=== PATIENT | female | born 1985 | race Caucasian/White ===

== ENCOUNTER 2024-09-26 11:57 | Emergency (ER) | payer BC, SELFPAY ==
--- NOTE | 2024-09-26 12:19 | ERPHSYRPT ---
- History of Present Illness Time Seen by Provider: 09/26/24 12:19 Source: patient, family Exam Limitations: no limitations Physician History: This is a right handed 38-year-old white female patient who was brought to the emergency department via private vehicle accompanied by her spouse and is a patient of Dr. Marquez, with a complaint of left hand injury. Patient was moving a heavy dresser down a few steps using a rex when the dresser fell up against her left hand. She arrives with pain and swelling to the left thumb and palmar aspect of the left hand at the thenar eminence. Patient has a history of anxiety, migraine headaches and is a daily smoker of tobacco cigarettes. Occurred: just prior to arrival Method of Injury: direct blow Quality: aching, throbbing Severity of Pain-Max: mild Severity of Pain-Current: mild Extremities Pain Location: hand: left Modifying Factors: Improves With: movement Associated Symptoms: none Allergies/Adverse Reactions: latex Allergy (Verified 09/26/24 12:16) Home Medications: Doxepin HCl 25 mg PO DAILY 11/10/22 [History] Travel Risk - International Travel Have you traveled outside of the country in past 3 weeks: No - Emerging Infectious Disease Are you exhibiting symptoms associated with any current EIDs: No - Review of Systems Constitutional: No Symptoms Eyes: No Symptoms Ears, Nose, & Throat: No Symptoms Respiratory: No Symptoms Cardiac: No Symptoms Abdominal/Gastrointestinal: No Symptoms Genitourinary Symptoms: No Symptoms Musculoskeletal: Injury (Left hand) Skin: No Symptoms Neurological: No Symptoms Psychological: No Symptoms Endocrine: No Symptoms Hematologic/Lymphatic: No Symptoms Immunological/Allergic: No Symptoms All Other Systems: Reviewed and Negative - Past Medical History Neurological History: Migraines Cardiac History: No Pertinent History Respiratory History: No Pertinent History Endocrine Medical History: No Pertinent History Musculoskeletal History: Fractures Other Medical History: CERVICAL FRACTURE AT AGE 12 WITH SPINAL SHOCK. - Past Surgical History Past Surgical History: No (unable to obtain) - Social History Smoking Status: Current every day smoker Exposure to second hand smoke: No Drug Use: none Patient Lives Alone: No - Nursing Vital Signs Nursing Vital Signs: Initial Vital Signs Temperature 97.7 F 09/26/24 12:20 Pulse Rate 70 09/26/24 12:20 Respiratory Rate 18 09/26/24 12:20 Blood Pressure 148/89 09/26/24 12:20 O2 Sat by Pulse Oximetry 99 09/26/24 12:20 Pain Scale Pain Intensity 4 - Physical Exam General Appearance: no apparent distress, alert, anxiety Eyes, Ears, Nose, Throat Exam: normal ENT inspection, moist mucous membranes Neck Exam: normal inspection, non-tender, supple, full range of motion Cardiovascular/Respiratory Exam: chest non-tender, no respiratory distress Abdominal Exam: non-tender Back Exam: normal inspection Shoulder Exam: normal inspection, non-tender, no evidence of injury, normal ROM Elbow/Forearm Exam: normal inspection, non-tender, no evidence of injury, normal ROM Wrist Exam: normal inspection, non-tender, no evidence of injury, normal ROM Hand Exam: bone tenderness (Left thumb), ecchymosis (Left thumb and thenar eminence left hand), soft tissue tenderness (Left thumb thenar eminence left hand), swelling (Left thumb and left thenar eminence), No deformity Neuro/Tendon Exam: normal sensation, normal motor functions, normal tendon functions, no evidence tendon injury Mental Status Exam: alert, oriented x 3, cooperative Skin Exam: ecchymosis (Left thumb and left thenar eminence) SpO2 Interpretation: normal O2 Delivery: Room Air - Course Nursing assessment & vital signs reviewed: Yes Ordered Tests: Active Orders 24 hr Category Date Time Status HAND (MINIMUM 3 VIEWS) Stat Exams 09/26/24 12:33 Taken Medication Summary Discontinued Medications Generic Name Dose Route Start Last Admin Trade Name Miya PRN Reason Stop Dose Admin Oxycodone/Acetaminophen 1 tab 09/26/24 12:32 09/26/24 12:40 Oxycodone Hcl/Apap 5 Mg/325 Mg Tablet PO 09/26/24 12:33 1 tab STAT STA Administration Oxycodone/Acetaminophen Confirm 09/26/24 12:38 Oxycodone Hcl/Apap 5 Mg/325 Mg Tablet Administered 09/26/24 12:39 Dose 1 tab .ROUTE .STK-MED ONE - Progress Progress: improved, pain not gone completely, re-examined Progress Note: 09/26/24 13:03 My medical decision making and the assignment of low complexity to this patient's medical issue today is based on review of the patient's past medical history, review the patient's medication list, review of the patient's drug allergy list, history present illness and physical findings on examination. The workup in this patient includes x-ray of the patient's left hand. Differential diagnosis includes but is not limited to left hand contusion, fracture left thumb, dislocation left thumb 09/26/24 13:13 I interpreted the preliminary report of the patient's left hand x-ray. The patient and spouse are aware that this is only a preliminary report. I do not see an acute fracture or dislocation. However, since the patient does have significant bruising and swelling of the thumb and thenar eminence of the left hand, we will put her in a thumb spica and have her follow-up in the orthopedic clinic here at [facility]. Counseled pt/family regarding: diagnosis, need for follow-up, rad results Medical Desision Making - Independent Historian Additional History obtained from: Spouse - Diagnostic Testing Diagnostic test were ordered, analyzed, and reviewed by me: Yes Radiological Interpretation: Interpreted by me, Teleradiologist Report - Risk of complications The pt has a mod risk of morbidity or mortality based on: Need for prescription drug management - Departure Departure Disposition: Home Clinical Impression: Contusion of left hand Condition: Stable Critical Care Time: No Referrals: ZACHARIAH MARQUEZ [Primary Care Provider, UNKNOWN] - Follow up/PCP as directed DOUG KELLEY NP [NON-STAFF PHY W/O PRIVILEGES, UNKNOWN] - Follow up/PCP as directed Additional Instructions: Ice pack to tender area 3-4 times a day for the next 3 days. Follow-up at the [facility] orthopedic clinic on 09/28/2024 at 8 AM for reevaluation. Take your Aleve as you normally do and the Percocet pain medicine as prescribed. Prescriptions: Oxycodone HCl/Acetaminophen [Percocet 5-325 mg Tablet] 1 each PO Q8H PRN PRN #6 tablet MDD 3 PRN Reason: Moderate To Severe Pain
[2024-09-26] MEDS ORDERED: PERCOCET TABLET 5/325MG ONE (12:38)
[2024-09-26] MEDS: PERCOCET TABLET 5/325MG PO STA (12:40)
[2024-09-26 12:45] VITALS: RESP 18; TEMP 97.7
[2024-09-26 13:26] VITALS: BP 140/80; PULSE 75; O2SAT 98
--- NOTE | 2024-09-26 20:39 | XRAY ---
Indication: Blunt trauma. Comparison: None 3 view left hand obtained. No bony, articular, or soft tissue abnormalities.
== END 2024-09-26 13:36 | disposition home or self-care (01) ==
LOC: ED 11:57
DX: S60.222A Contusion of left hand, initial encounter (principal); W23.0XXA Caught, crushed, jammed, or pinched between moving objects, initial encounter; Z79.891 Long term (current) use of opiate analgesic; Z79.899 Other long term (current) drug therapy; Z72.0 Tobacco use
CPT/HCPCS: 73130; 99283; A4570; A9270-GY